=== PATIENT | female | born 1940 | race Caucasian/White ===

== ENCOUNTER 2023-02-17 16:06 | Emergency (ER) | payer MEDICARE, MEDICAID ==
[~2023-02-17] VITALS: Ht 162.6 cm; Wt 77.3 kg
[~2023-02-17 16:06] MED LIST: CEPH-585 PO; ESTR1PAT TOP; IBUP-1985 PO; RANI-648 PO
[2023-02-17 16:11] VITALS: TEMP 98.2
[2023-02-17 17:36] LABS: HEMATOCRIT 45.8 % (35.0-45.0)
[2023-02-17 17:39] LABS: BASOPHILS # (AUTO) 0.1 X10'3 (0-0.2); BASOPHILS % (AUTO) 0.6 % (0-1); EOSINOPHILS # (AUTO) 0.1 X10'3 (0-0.9); EOSINOPHILS % (AUTO) 1.3 % (0-6); HEMOGLOBIN 15.7 g/dl (12.0-16.0); LYMPHOCYTES # (AUTO) 2.8 X10'3 (1.1-4.8); MEAN CORPUSCULAR HEMOGLOBIN 30.8 PG (27.0-31.0); MEAN CORPUSCULAR HGB CONC 34.1 g/dL (33.0-36.5); MEAN CORPUSCULAR VOLUME 90.3 FL (78-98); MEAN PLATELET VOLUME 8.8 FL (7.4-10.4); MONOCYTES # (AUTO) 0.8 X10'3 (0-0.9); MONOCYTES % (AUTO) 9.3 % (2-12); NEUTROPHILS # (AUTO) 4.6 X10'3 (1.8-7.7); NEUTROPHILS % (AUTO) 54.8 % (42-75); PLATELET COUNT 261 X10'3 (140-440); RED BLOOD COUNT 5.08 X10'6 (4.20-5.60); RED CELL DISTRIBUTION WIDTH 13.2 % (11.5-14.5); WHITE BLOOD COUNT 8.3 X10'3 (4.5-11.0)
[2023-02-17 17:51] LABS: ALANINE AMINOTRANSFERASE 36 U/L (12-78); ALBUMIN 3.5 G/DL (3.4-5.0); ALBUMIN/GLOBULIN RATIO 0.9 (1.1-1.5); ALKALINE PHOSPHATASE 95 IU/L (46-116); ANION GAP 7 (8-16); ASPARTATE AMINO TRANSFERASE 22 U/L (10-37); BILIRUBIN,TOTAL 0.8 MG/DL (0.1-1.0); BLOOD UREA NITROGEN 9 MG/DL (7-18); BUN/CREATININE RATIO 11.3 (10.0-20.0); CALCIUM 8.9 MG/DL (8.5-10.1); CHLORIDE 103 MMOL/L (99-107); GLUCOSE 103 MG/DL (70-104); SODIUM 137 MMOL/L (135-145); TOTAL CARBON DIOXIDE 27.2 MMOL/L (24-32); TOTAL PROTEIN 7.3 G/DL (6.4-8.2); eCRCL 48 ML/MIN; eGFR 69 ML/MIN
[2023-02-17 18:02] LABS: PRO BRAIN NATRIURETIC PEPTIDE 238 PG/ML (0-450)
[2023-02-17] MEDS ORDERED: albuterol 2.5 MG/3 ML nebule NEB ONE (19:00)
[2023-02-17] MEDS ORDERED: ipratropium 0.5 MG/2.5ML nebule IH ONE (19:00)
[2023-02-17 19:15] VITALS: PULSE 80; RESP 18
[2023-02-17 19:19] VITALS: PULSE 71; RESP 17
[2023-02-17] MEDS ORDERED: dexamethasone 4mg tablet PO ONE (19:40)
[2023-02-17 19:52] VITALS: BP 170/82; PULSE 90; RESP 16; O2SAT 95
== END 2023-02-17 19:54 | disposition home or self-care (01) ==
LOC: ER 16:07
DX: J44.1 Chronic obstructive pulmonary disease with (acute) exacerbation (principal); J45.998 Other asthma
CPT/HCPCS: 36415; 71045; 80053; 83880; 84484; 85025; 93005; 94640; 94760; 96372; 96374; 99285

== ENCOUNTER 2024-10-03 10:57 | Emergency (ER) | payer MEDICARE, MEDICAID ==
[~2024-10-03] VITALS: Ht 162.6 cm; Wt 77.3 kg
[~2024-10-03 10:57] MED LIST changes: -CEPH-585 PO
[2024-10-03 11:08] VITALS: BP 170/97; PULSE 93; RESP 15; TEMP 96.7; O2SAT 95
--- NOTE | 2024-10-03 11:24 | Physician Documentation ---
History of Present Illness ~ Chief Complaint: Extremity Swelling Stated Complaint: ARM SWELLING Time Seen by MD: 11:12 OK to notify your PCP?: Yes Primary Medical Doctor: Amarjit CHAVARRIA Source: patient Mode of Arrival: POV Exam Limitations: no limitations HPI 84-year-old female here with right wrist redness which she states is itchy and swollen x4 days. She was pruning a elizabeth prior to onset of symptoms but she states she is not aware of being in any [place] but reports she lives in [place] and states it is all around out there. She denies rashes anywhere else. She denies any pain with active range motion of her wrist or elbow. Prearrival treatment with calamine lotion has not helped. Tetanus within 5 years: Yes Medication Reconciliation Allergies: Coded Allergies: Sulfa (Sulfonamide Antibiotics) (Verified Allergy, Intermediate, 08/01/13) diazepam (Verified Allergy, Intermediate, 08/01/13) amoxicillin (Verified Allergy, Unknown, 04/20/14) clavulanic acid (Verified Allergy, Unknown, 04/20/14) morphine (Verified Allergy, Unknown, 10/03/24) niacin (Verified Allergy, Unknown, 04/20/14) Scheduled Ranitidine HCl (Zantac), 1 TABLET PO BID Scheduled PRN Ibuprofen (Ibuprofen), 1 TABLET PO Q6H PRN for pain Miscellaneous Medications Estradiol (Vivelle-Dot), 1 PATCH TOP, (Reported) Past Medical History Past Medical History: Coronary Artery Disease, COPD, GERD, Kidney Stones Past Surgical History: angioplasty, cholecystectomy, hysterectomy, orthopedic surgeries Other Past Surgical History: Bladder repair Patient History: (CABG) Coronary artery bypass grafting FATHER, , Age: 60 years and older, Onset:60 years & older (COPD) Chronic obstructive lung disease MOTHER, , Age: 60 years and older, Onset:60 years & older (DM Type 2) Diabetes mellitus type 2 FAMILY/OTHER, Onset:50's - 60 Alcohol Use: Rarely Drug Use: none Lives with: Alone Lives In: Home Occupation: disabled, retired Review of Systems All Other Systems at this time: Reviewed and Negative Physical Exam Vital Signs: Temperature: 96.7, Source: Temporal, Heart Rate: 93, Respiratory Rate: 15, BP: 170/97, Pulse Oximetry: 95, Weight: 77.270 Physical Exam General Appearance: Alert, WD/WN. NAD. HEENT: NCAT, PERRL, EOMI. Neck: Supple, trachea midline. Cardiovascular: RRR. No m/r/g. Lungs: CTAB. Breathing unlabored Extremities: Normal inspection. No edema. Skin: Warm/dry, normal color. Right wrist erythematous macular rash mostly dorsum of wrist/forearm with localized mild edema. No lymphangitis. Patient is actively itching her wrist while I examined her. No pustules or papules. Neurological: Alert and oriented x4, normal gait. Psychiatric: Affect congruent with mood. Progress Results/Orders Results/Orders Vital Signs 10/03/24 11:08 Temp 96.7 Pulse 93 Resp 15 B/P (MAP) 170/97 Pulse Ox 95 Medical Decision Making Wrist Diff Dx:Considerations: Include: Abrasion, Arthritis, DJD, Gout, Rheumatoid, Septic, Carpal tunnel snydrome, Contusion, Dislocation, Fracture- carpal, Fracture-radius, Fracture-ulna, Ganglion, Laceration, Neurovascular injury, Open fracture, Strain, Other Additional Comment Findings are most consistent with contact dermatitis however given the fact that it is only on the dorsum of her wrist and forearm and not anywhere else I felt that it was necessary to cover her for cellulitis as well as it would be less likely that she would only have contact dermatitis in one location. Scabies also in differential; however, no bites/papules or typical signs on exam. Departure Time of Disposition: 11:22 Disposition: 01 HOME / SELF CARE / HOMELESS Impression: Primary Impression: Contact dermatitis Qualified Codes: L25.9 - Unspecified contact dermatitis, unspecified cause Additional Impression: Cellulitis Qualified Codes: L03.113 - Cellulitis of right upper limb Condition: Stable Discharge Instructions: Contact Dermatitis, [id number] Additional Instructions: we are treating you for contact dermatitis with secondary cellulitis if red streak up your arm, fever, you are not able to move wrist or elbow or any other concerning symptoms return to er you can take benadryl as well for the itching Referrals: NO PRIMARY CARE PROVIDER (PCP) Prescriptions Triamcinolone Acetonide 0.5% Crm* (Kenalog 0.5% Crm*) 15 Gm Tube 1 APPLIC TP TID for itching, #30 EACH apply to forearm Prov: YUSUF BENÍTEZ 10/03/24 Cephalexin*Monohydrate* (Keflex*) 500 Mg Capsule 1 CAP PO QID for 10 Days, #40 CAP Prov: YUSUF BENÍTEZ 10/03/24 Education Educated: Patient Educated regarding: diagnosis, treatment, need for follow up Signature Scribe Signature: x Attestation: YUSUF Hammonds Oct 03, 2024 11:24
[2024-10-03] MEDS ORDERED: CEPH-585 PO (11:28)
[2024-10-03] MEDS ORDERED: TRIA15CR61 TP (11:28)
== END 2024-10-03 11:34 | disposition home or self-care (01) ==
LOC: ER 10:57
DX: L23.7 Allergic contact dermatitis due to plants, except food (principal); L03.113 Cellulitis of right upper limb; E11.9 Type 2 diabetes mellitus without complications; I25.10 Atherosclerotic heart disease of native coronary artery without angina pectoris; K21.9 Gastro-esophageal reflux disease without esophagitis; J44.9 Chronic obstructive pulmonary disease, unspecified; Z88.0 Allergy status to penicillin; Z88.2 Allergy status to sulfonamides; Z88.5 Allergy status to narcotic agent; Z90.49 Acquired absence of other specified parts of digestive tract; Z90.710 Acquired absence of both cervix and uterus
CPT/HCPCS: 99283